=== PATIENT | male | born 1970 | race Caucasian/White ===

== ENCOUNTER 2019-06-19 09:00 | Emergency (ER) | payer MEDICAID ==
[~2019-06-19] VITALS: Ht 167.6 cm; Wt 72.1 kg
[2019-06-19 09:15] VITALS: BP 176/92
--- NOTE | 2019-06-19 09:19 | NUR ---
PT TAKEN TO BED 12.
--- NOTE | 2019-06-19 09:35 | NUR ---
DR TURK AT BEDSIDE
--- NOTE | 2019-06-19 09:39 | NUR ---
C/O SORE THROAT WITH L SIDED EAR ACHE X 3 DAYS. PAIN 7/10. UPON EXAMINATION, SWELLING TO INSIDE OF THROAT. PT ON RA 97% AT THIS TIME. NO RESP DISTRESS NOTED. PT HAS MUFFELED VOICE. TACHY AT 110. HAS BEEN TAKING DAYQUIL AND NIQUIL WITH SOME RELIEF. DENIES COUGHING, FEVER, CHILLS, OR RINORRHEA. PT ALERT AND AWAKE. AMBULATES WITH STEADY GAIT. BED IS DOWN, LOCKED, BED RAIL X 1, ERMD TO SEE PT. HX: HTN RX: CANT RECALL
--- NOTE | 2019-06-19 09:40 | NUR ---
PT STATES HE DOES NOT TAKE MEDICATIONS
[2019-06-19] MEDS ORDERED: DEXAMETHASONE 10 MG/ML VIAL IVP ONE (09:45)
[2019-06-19] MEDS ORDERED: NACL 0.9% 1,000 ML IV ONE (09:45)
--- NOTE | 2019-06-19 09:45 | NUR ---
IV INSERTED AND LABS DRAWN BEDSIDE, BLOOD CULTURES DRAWN
[2019-06-19] MEDS ORDERED: cefTRIAXone 1,000 MG VIAL ONE (09:50)
--- NOTE | 2019-06-19 10:05 | NUR ---
PT SIGNED CONSENT FORM FOR CT OF NECK WITH CONTRAST
--- NOTE | 2019-06-19 10:12 | NUR ---
DECADRON ADMINISTERED IVP ROCEPHIN AND BOLUS IVPB RUNNING AT THIS TIME
[2019-06-19 10:37] LABS: BASOPHILS % (AUTO) 0.3 % (0.0-2.0); EOSINOPHILS % (AUTO) 0.1 % (0.0-4.0); HEMATOCRIT 39.5 % (36-52); HEMOGLOBIN 13.3 g/dL (12.0-18.0); LYMPHOCYTES # (AUTO) 1.1 K/uL (2.0-11.5); LYMPHOCYTES % (AUTO) 9.5 % (20.5-51.1); MEAN CORPUSCULAR HEMOGLOBIN 29 pg (27-31); MEAN CORPUSCULAR HGB CONC 34 g/dL (33-37); MEAN CORPUSCULAR VOLUME 87.2 fL (80-94); MONOCYTES # (AUTO) 1.1 K/uL (0.8-1.0); MONOCYTES % (AUTO) 10.1 % (1.7-9.3); NEUTROPHILS # (AUTO) 8.8 K/uL (1.8-7.7); PLATELET COUNT (AUTO) 222 K/uL (140-450); RED BLOOD CELL COUNT(AUTO) 4.53 MIL/uL (4.20-6.10); RED CELL DISTRIBUTION WIDTH 12.2 % (11.6-13.7); WHITE BLOOD COUNT (AUTO) 11.1 K/uL (4.8-10.8)
[2019-06-19 10:57] LABS: ALBUMIN 3.3 g/dL (3.4-5.0); ANION GAP 11.2 (8-16); CARBON DIOXIDE 29.9 mmol/L (21-32); CREATININE 0.9 mg/dL (0.7-1.3); POTASSIUM 4.1 mmol/L (3.5-5.1); TOTAL BILIRUBIN 0.9 mg/dL (0.0-1.0)
--- NOTE | 2019-06-19 10:58 | NUR ---
PT HARISH AT 102. NS RUNNING. PT C/O 02/[address] TURK NOTIFIED
[2019-06-19] MEDS ORDERED: KETOROLAC 30 MG/ML VIAL IVP ONE (11:15)
--- NOTE | 2019-06-19 11:21 | NUR ---
PT C/O 10 CONTINUOUS THROAT PAIN. TORADOL IVP ADMINISTERED.
--- NOTE | 2019-06-19 12:03 | NUR ---
PT RETURNED FROM CT VIA WHEELCHAIR
--- NOTE | 2019-06-19 12:03 | NUR ---
Patient returned from CT scan. RN re-evaluating patient at bedside.
--- NOTE | 2019-06-19 12:06 | NUR ---
PT STATES THROAT PAIN IS NOW A 4/10 WITH RELIEF FROM TORADOL
[2019-06-19 13:40] VITALS: BP 138/83
--- NOTE | 2019-06-19 13:40 | NUR ---
Patient discharged with v/s stable. Written and verbal after care instructions given and explained REGARDING STREP THROAT. Patient alert, oriented and verbalized understanding of instructions. Ambulatory with steady gait. All questions addressed prior to discharge. IV AND ID band removed. Patient advised to follow up with PMD. Rx of ACETAMINOPHEN, ROXICET, AMOXICILLIN, CHILDRENS IBUPROFEN given. Patient educated on indication of medication including possible reaction and side effects. Opportunity to ask questions provided and answered. PT GIVEN EXCUSE FOR WORK
== END 2019-06-19 13:40 | disposition home or self-care (01) ==
LOC: MED 09:00
DX: J02.9 Acute pharyngitis, unspecified (principal)
CPT/HCPCS: 36415; 70491; 80053; 85025; 96365; 96375; 99284; J0696; J1100; J1885; J7030

== ENCOUNTER 2022-04-15 06:09 | Emergency (ER) | payer MEDICAID ==
[~2022-04-15] VITALS: Ht 177.8 cm; Wt 74.8 kg
--- NOTE | 2022-04-15 06:10 | NUR ---
ANDREW FRIAS FOR PREBOOK EXAM DUE TO C/O PMH : HTN.DENIES PAIN OR DISCOMFORT
[2022-04-15 06:18] VITALS: BP 167/110
[2022-04-15] MEDS ORDERED: ENALAPRIL 10 MG TAB PO ONE (06:35)
[2022-04-15 07:17] VITALS: BP 121/71
--- NOTE | 2022-04-15 07:17 | NUR ---
Patient discharged with v/s stable. Written and verbal after care instructions given and explained. Patient verbalized understanding. Ambulatory with steady gait. All questions addressed prior to discharge. Advised to follow up with PMD.
== END 2022-04-15 07:17 ==
LOC: MED 06:09
DX: I10 Essential (primary) hypertension (principal); Z02.89 Encounter for other administrative examinations
CPT/HCPCS: 99283

== ENCOUNTER 2022-07-04 02:32 | Emergency (ER) | payer MEDICAID ==
[~2022-07-04] VITALS: Ht 167.6 cm; Wt 79.4 kg
[2022-07-04 02:36] VITALS: BP 158/107
--- NOTE | 2022-07-04 02:39 | NUR ---
ANDREW FRIAS TO CHAIR A
[2022-07-04 03:16] VITALS: BP 158/107
--- NOTE | 2022-07-04 03:16 | NUR ---
PATIENT [facility] POL[employer] DEPT. PATIENT EXAMINED BY DR. COLLIER. PATIENT MEDICALLY CLEARED AND RELEASED IN CUSTODY IN STABLE CONDITION. ORIGINAL PRE-BOOK FORM GIVEN TO OFFICER KT.AMIRA GAVE PRESCRIPTION FOR LISINOPRIL.
== END 2022-07-04 03:16 ==
LOC: MED 02:32
DX: I10 Essential (primary) hypertension (principal); Z79.899 Other long term (current) drug therapy
CPT/HCPCS: 99283

== ENCOUNTER 2023-12-27 08:42 | Emergency (ER) | payer MEDICAID ==
[~2023-12-27] VITALS: Ht 165.1 cm; Wt 74.8 kg
[2023-12-27 08:45] VITALS: BP 172/93; PULSE 110; RESP 17; TEMP 97.9; O2SAT 98
[2023-12-27] MEDS ORDERED: LIDOCAINE MPF 1% 5 ML ONE (09:16)
[2023-12-27] MEDS ORDERED: cefTRIAXone 500 MG VIAL ONE (09:16)
[2023-12-27] MEDS: cefTRIAXone 500 MG in LIDOCAINE MPF 1% 1 ML IM ONE (09:24)
[2023-12-27] MEDS: KETOROLAC 30 MG/ML VIAL IM ONE (09:25)
[2023-12-27 10:09] LABS: HIV RAPID SCREEN NON-REACTIVE (NON REACTIV); RAPID PLASMA REAGIN NON-REACTIVE (Non Reactiv)
[2023-12-27 10:41] LABS: BILIRUBIN,URINE NEGATIVE (NEGATIVE); BLOOD, URINE 1+ (NEGATIVE); COLOR,URINE YELLOW (YELLOW); NITRITE, URINE NEGATIVE (NEGATIVE); PH,URINE 7.5 (5.0-9.0); PROTEIN,URINE TRACE (NEGATIVE); UGLUCOSE NEGATIVE (NEGATIVE)
[2023-12-27 10:53] LABS: APPEARANCE,URINE HAZY (CLEAR)
[2023-12-27 11:00] LABS: LEUKOCYTE ESTERASE ,URINE 1+ (NEGATIVE)
[2023-12-27 11:07] LABS: BACTERIA,URINE OCCASSIONAL /HPF (None Seen); RBC,URINE 0-5 /HPF (0-5); SQUAMOUS EPITHELIAL CELL,UR 0-3 (FEW) /LPF (0-3 (FEW)); WBC,URINE 0-5 /HPF (0-5)
[2023-12-27] MEDS ORDERED: NAPR-1704 PO (12:21)
[2023-12-27] MEDS ORDERED: DOXY-690 PO (12:21)
[2023-12-27 12:29] VITALS: BP 154/88; PULSE 98; RESP 15; TEMP 97.9; O2SAT 100
[2023-12-29 12:46] LABS: NEISSERIA GONORRHOEAE PCR Detected (NOTdetected)
== END 2023-12-27 12:29 | disposition home or self-care (01) ==
LOC: MED 08:42
DX: N43.3 Hydrocele, unspecified (principal); I10 Essential (primary) hypertension; Z79.1 Long term (current) use of non-steroidal anti-inflammatories (NSAID); Z79.2 Long term (current) use of antibiotics
CPT/HCPCS: 76870; 81001; 86592; 86703; 87086; 87491; 96372; 99285; J0696; J1885; J2001; Q0092